=== PATIENT | female | born 1990 | race Caucasian/White ===

== ENCOUNTER 2023-10-23 13:40 | Emergency (ER) | payer MEDICAID ==
[~2023-10-23] VITALS: Ht 157.5 cm; Wt 69.3 kg
[2023-10-23 14:10] LABS: BASOPHILS % (AUTO) 0.4 % (0-1); EOSINOPHILS # (AUTO) 0.3 X10'3 (0-0.9); HEMATOCRIT 40.6 % (35.0-45.0); HEMOGLOBIN 14.1 g/dl (12.0-16.0); LYMPHOCYTES # (AUTO) 1.9 X10'3 (1.1-4.8); LYMPHOCYTES % (AUTO) 31.2 % (21-51); MEAN CORPUSCULAR HEMOGLOBIN 30.5 PG (27.0-31.0); MEAN CORPUSCULAR HGB CONC 34.7 g/dL (33.0-36.5); MEAN CORPUSCULAR VOLUME 87.8 FL (78-98); MONOCYTES # (AUTO) 0.4 X10'3 (0-0.9); MONOCYTES % (AUTO) 5.9 % (2-12); NEUTROPHILS # (AUTO) 3.5 X10'3 (1.8-7.7); NEUTROPHILS % (AUTO) 57.5 % (42-75); PLATELET COUNT 243 X10'3 (140-440); RED BLOOD COUNT 4.63 X10'6 (4.20-5.60); RED CELL DISTRIBUTION WIDTH 12.3 % (11.5-14.5); WHITE BLOOD COUNT 6.1 X10'3 (4.5-11.0)
[2023-10-23 14:25] LABS: ANION GAP 7 (8-16); BLOOD UREA NITROGEN 9 MG/DL (7-18); BUN/CREATININE RATIO 14.1 (10.0-20.0); CALCIUM 8.5 MG/DL (8.5-10.1); CHLORIDE 109 MMOL/L (99-107); CREATININE 0.64 MG/DL (0.40-0.90); GLUCOSE 101 MG/DL (70-104); POTASSIUM 3.5 MMOL/L (3.5-5.1); SODIUM 145 MMOL/L (135-145); eCRCL 101 ML/MIN; eGFR > 90 ML/MIN
[2023-10-23 14:27] LABS: BETA HCG,QUANTITATIVE 7 mIU/ml
[2023-10-23 15:17] VITALS: BP 119/71; PULSE 80; RESP 16; TEMP 98; O2SAT 100
== END 2023-10-23 15:18 | disposition home or self-care (01) ==
LOC: ER 13:41
DX: O20.0 Threatened abortion (principal); Z3A.01 Less than 8 weeks gestation of pregnancy
CPT/HCPCS: 36415; 80048; 84702; 85025; 99283

== ENCOUNTER → 2024-02-24 | Outpatient (CLI) | payer MEDICAID | END | disposition home or self-care (01) | LOC: RAD 12:56 | PROVIDERS: ATTEND Student in an Organized Health Care Education/Training Program | DX: Z32.01 Encounter for pregnancy test, result positive (principal); R93.89 Abnormal findings on diagnostic imaging of other specified body structures | CPT/HCPCS: 76801; 76817 ==

== ENCOUNTER 2024-03-09 18:13 | Emergency (ER) | payer MEDICAID ==
[~2024-03-09] VITALS: Ht 157.5 cm; Wt 68.5 kg
[2024-03-09 18:58] LABS: URINE HCG POSITIVE (NEG)
[2024-03-09 19:01] LABS: BILIRUBIN,URINE NEGATIVE (Neg); CLARITY,URINE SLIGHTLY CLOUDY (Clear); COLOR,URINE YELLOW (Yellow); GLUCOSE, URINE NEGATIVE (Neg); KETONES,URINE 15 mg/dl (Neg); LEUKOCYTE ESTERASE ,URINE SMALL (Neg); NITRITES, URINE NEGATIVE (Neg); OCCULT BLOOD,URINE NEGATIVE (Neg); PROTEIN,URINE NEGATIVE (Neg); UA COLLECTION TYPE CLN CATCH MIDSTREAM; UROBILINOGEN,URINE 0.2 E.U/dL (0.2-1.0)
[2024-03-09 19:09] LABS: URINE AMPHETAMINE SCREEN NEGATIVE (Neg); URINE BARBITUATE SCREEN NEGATIVE (Neg); URINE BENZODIAZEPINES SCREEN NEGATIVE (Neg); URINE CANNABINOID SCREEN NEGATIVE (Neg); URINE COCAINE SCREEN NEGATIVE (Neg); URINE METHADONE SCREEN NEGATIVE (Neg); URINE OPIATE SCREEN NEGATIVE (Neg); URINE PHENCYCLIDINE SCREEN NEGATIVE (Neg)
[2024-03-09 19:19] LABS: BACTERIA,URINE 1+ /HPF (Neg); MUCUS STRANDS FEW /LPF (Neg); RENAL CELLS, URINE FEW /HPF; SQUAMOUS EPITHELIAL CELL,UR MANY /LPF (FEW); TRANSITIONAL EPI CELLS,URINE MODERATE /HPF
[2024-03-09 19:27] LABS: BASOPHILS # (AUTO) 0.2 X10'3 (0-0.2); BASOPHILS % (AUTO) 2.1 % (0-1); EOSINOPHILS # (AUTO) 0.3 X10'3 (0-0.9); EOSINOPHILS % (AUTO) 3.5 % (0-6); HEMATOCRIT 39.7 % (35.0-45.0); HEMOGLOBIN 13.8 g/dl (12.0-16.0); LYMPHOCYTES # (AUTO) 2.2 X10'3 (1.1-4.8); MEAN CORPUSCULAR HEMOGLOBIN 30.8 PG (27.0-31.0); MEAN CORPUSCULAR HGB CONC 34.7 g/dL (33.0-36.5); MEAN CORPUSCULAR VOLUME 88.9 FL (78-98); MEAN PLATELET VOLUME 9.2 FL (7.4-10.4); MONOCYTES # (AUTO) 0.4 X10'3 (0-0.9); MONOCYTES % (AUTO) 5.1 % (2-12); NEUTROPHILS # (AUTO) 4.5 X10'3 (1.8-7.7); NEUTROPHILS % (AUTO) 60.3 % (42-75); PLATELET COUNT 215 X10'3 (140-440); RED BLOOD COUNT 4.47 X10'6 (4.20-5.60); RED CELL DISTRIBUTION WIDTH 12.8 % (11.5-14.5); WHITE BLOOD COUNT 7.5 X10'3 (4.5-11.0)
[2024-03-09 20:02] LABS: ALBUMIN 4.1 G/DL (3.4-5.0); ANION GAP 10 (8-16); BLOOD UREA NITROGEN 9 MG/DL (7-18); BUN/CREATININE RATIO 14.8 (10.0-20.0); CALCIUM 9.3 MG/DL (8.5-10.1); CHLORIDE 103 MMOL/L (99-107); CREATININE 0.61 MG/DL (0.40-0.90); GLUCOSE 86 MG/DL (70-104); POTASSIUM 3.9 MMOL/L (3.5-5.1); SODIUM 138 MMOL/L (135-145); TOTAL CARBON DIOXIDE 24.8 MMOL/L (24-32); eCRCL 106 ML/MIN; eGFR > 90 ML/MIN
[2024-03-09 20:08] LABS: BETA HCG,QUANTITATIVE 40765 mIU/ml
[2024-03-09 20:20] VITALS: BP 122/66; PULSE 68; TEMP 98.2; O2SAT 98
[2024-03-09 22:30] VITALS: RESP 16
== END 2024-03-09 22:31 | disposition home or self-care (01) ==
LOC: ER 18:14
DX: O20.0 Threatened abortion (principal)
CPT/HCPCS: 36415; 76801; 80048; 80305; 81001; 81025; 84702; 85025; 86885; 86900; 86901; 99284

== ENCOUNTER 2024-03-15 09:31 | Outpatient (CLI) | payer MEDICAID | END 2024-03-15 23:59 | disposition home or self-care (01) | LOC: RAD 09:31 | PROVIDERS: ATTEND Student in an Organized Health Care Education/Training Program | DX: O26.21 Pregnancy care for patient with recurrent pregnancy loss, first trimester (principal); O98.511 Other viral diseases complicating pregnancy, first trimester; Z3A.01 Less than 8 weeks gestation of pregnancy | CPT/HCPCS: 76801 ==